=== PATIENT | female | born 1940 | race African-American/Black ===

== ENCOUNTER 2018-06-16 22:21 | Inpatient (IN) | payer MEDICARE, MEDICAID ==
[~2018-06-16] VITALS: Ht 172.7 cm; Wt 86.2 kg
[2018-06-17 00:23] LABS: BASOPHILS % 0.3 % (0.0-2.0); EOSINOPHILS % 0.2 % (0.0-5.0); HEMOGLOBIN. 11.7 g/dL (12.0-16.0); LYMPHOCYTES % 21.1 % (20.0-50.0); MEAN CORPUSCULAR HEMOGLOBIN 30.7 pg (28.0-32.0); MEAN CORPUSCULAR VOLUME 91.7 fL (81.0-99.0); MONOCYTES % 8.9 % (2.0-8.0); NEUTROPHILS % 69.5 % (40.0-76.0); PLATELET 195 x1000/uL (130-400); RED BLOOD CELL COUNT 3.82 mill/uL (4.2-5.4); RED CELL DISTRIBUTION WIDTH 14.6 % (11.6-14.6)
[2018-06-17 00:26] LABS: INR 1.1; PARTIAL THROMBOPLASTIN TIME 29.9 sec (23.4-31.0); PROTHROMBIN TIME 10.7 sec (9.1-11.1)
[2018-06-17 00:28] LABS: CHLORIDE 107 mEq/L (98-107)
[2018-06-17 00:30] LABS: CLARITY URINE CLEAR (CLEAR); COLOR URINE YELLOW (YELLOW); KETONES URINE TRACE (NEGATIVE); LEUKOCYTE ESTERASE URINE NEGATIVE (NEGATIVE); NITRITE URINE NEGATIVE (NEGATIVE); OCCULT BLOOD URINE NEGATIVE (NEGATIVE); PROTEIN URINE NEGATIVE (NEGATIVE); SPECIFIC GRAVITY URINE 1.019 (1.005-1.030)
[2018-06-17] MEDS ORDERED: SODIUM CHLORIDE 0.9% 1,000 ML IV ONE (00:35)
[2018-06-17] MEDS ORDERED: ONDANSETRON HCL 4MG/2ML INJ IV STA (00:35)
[2018-06-17] MEDS ORDERED: MORPHINE SULFATE 4 MG/ML CPJ (NOT FOR IM USE) IV STA (00:35)
[2018-06-17] MEDS ORDERED: ACETAMINOPHEN 325MG TABLET PO PRN (04:30)
[2018-06-17 08:00] VITALS: BP 121/54
[2018-06-17 10:21] VITALS: BP 132/64
[2018-06-17 12:00] VITALS: BP 113/53
[2018-06-17] MEDS ORDERED: IPRATROPIUM/ALBUTEROL 0.5-3(2.5)MG/3ML NEB INH PRN (12:00)
[2018-06-17] MEDS ORDERED: ONDANSETRON HCL 4MG/2ML INJ IV PRN (12:00)
[2018-06-17] MEDS ORDERED: CLONIDINE 0.1MG TABLET PO PRN (12:00)
[2018-06-17] MEDS ORDERED: MVI, ADULT NO.1 10 ML, FOLIC ACID 1 MG in SODIUM CHLORIDE 0.9% 1,000 ML IV NR ×3 (13:00)
[2018-06-17] MEDS ORDERED: THIAMINE HCL 100MG TABLET PO NR (13:00)
[2018-06-17] MEDS: ENOXAPARIN 40MG/0.4ML SYR SUBCUT SCH (13:00)
[2018-06-17] MEDS ORDERED: LORAZEPAM 2MG/ML CPJ IV PRN (14:15)
[2018-06-17 20:00] VITALS: BP 146/67
[2018-06-17] MEDS: ACETAMINOPHEN 325MG TABLET PO PRN (21:48)
[2018-06-18] VITALS: BP 135/54
[2018-06-18] MEDS ORDERED: DORZ10DR9 EACHEYE (03:43)
[2018-06-18] MEDS ORDERED: VALS1TAB80 MT (03:43)
[2018-06-18] MEDS ORDERED: HYDR25TA MT (03:43)
[2018-06-18] MEDS ORDERED: ATOR20TA65 MT (03:43)
[2018-06-18] MEDS ORDERED: ATOR20TA65 PO (03:43)
[2018-06-18] MEDS ORDERED: PREG75CA MT (03:43)
[2018-06-18] MEDS ORDERED: NIFE60TA64 MT (03:43)
[2018-06-18] MEDS ORDERED: MULT-1146 MT (03:43)
[2018-06-18] MEDS ORDERED: ASPI-1158 PO (03:43)
[2018-06-18] MEDS ORDERED: BIMA2.5D4 EACHEYE (03:43)
[2018-06-18 04:00] VITALS: BP 153/69
[2018-06-18 08:00] VITALS: BP 145/64
[2018-06-18 10:50] LABS: BASOPHILS % 0.4 % (0.0-2.0); EOSINOPHILS % 0.1 % (0.0-5.0); HEMATOCRIT. 32.2 % (36.0-48.0); HEMOGLOBIN. 10.7 g/dL (12.0-16.0); LYMPHOCYTES % 14.6 % (20.0-50.0); MEAN CORPUSCULAR HEMOGLOBIN 30.5 pg (28.0-32.0); MEAN CORPUSCULAR VOLUME 91.9 fL (81.0-99.0); MEAN PLATELET VOLUME 8.9 fl (7.4-10.4); MONOCYTES % 7.6 % (2.0-8.0); NEUTROPHILS % 77.3 % (40.0-76.0); PLATELET 198 x1000/uL (130-400); RED BLOOD CELL COUNT 3.51 mill/uL (4.2-5.4); RED CELL DISTRIBUTION WIDTH 14.7 % (11.6-14.6)
[2018-06-18 11:08] LABS: T4 FREE 1.19 ng/dL (0.76-1.46)
[2018-06-18] MEDS: HYDROCODONE/ACETAMINOPHEN 5/325MG TABLET PO PRN (11:37)
[2018-06-18] MEDS: ENOXAPARIN 40MG/0.4ML SYR SUBCUT SCH (11:37)
[2018-06-18 12:00] VITALS: BP 146/83
[2018-06-18 16:00] VITALS: BP 148/66
[2018-06-18] MEDS ORDERED: DOCUSATE SODIUM 100MG CAPSULE PO PRN (16:00)
[2018-06-18] MEDS ORDERED: GUAIFENESIN 200MG/10ML SUGAR FREE UDC PO PRN (16:00)
[2018-06-18] MEDS ORDERED: DIPHENHYDRAMINE 50MG/ML VIAL IV PRN (16:00)
[2018-06-18] MEDS ORDERED: TEMAZEPAM 15MG CAPSULE PO PRN (16:00)
[2018-06-18] MEDS ORDERED: DEXTROSE 50% WATER 50ML SYRINGE IV PRN (16:00)
[2018-06-18] MEDS ORDERED: LACTULOSE 20G/30ML UDC PO NR (16:30)
[2018-06-18] MEDS: BLOOD SUGAR DIAGNOSTIC STRIP TEST SCH ×2 (17:20→21:00)
[2018-06-18] MEDS ORDERED: LEVOFLOXACIN 500MG PREMIX 100 ML IV NR (17:30)
[2018-06-18] MEDS: INSULIN LISPRO 100 UNITS/ML SUBCUT SCH ×2 (17:50→21:00)
[2018-06-18] MEDS: DEXT 5%/0.45% NACL 1000ML 1,000 ML IV SCH (18:23)
[2018-06-18 20:00] VITALS: BP 155/69
[2018-06-18] MEDS: ACETAMINOPHEN 325MG TABLET PO PRN (22:20)
[2018-06-19] VITALS: BP_SYST 125; BP_SYST 138; BP_DIAS 65; BP_DIAS 71
[2018-06-19 04:00] VITALS: BP 148/64
[2018-06-19] MEDS: BLOOD SUGAR DIAGNOSTIC STRIP TEST SCH ×4 (07:20→21:00)
[2018-06-19 07:43] LABS: HEMATOCRIT 31.5 % (36.0-48.0); HEMOGLOBIN 10.5 g/dL (12.0-16.0); MEAN CORPUSCULAR HEMOGLOBIN 30.5 pg (28.0-32.0); MEAN CORPUSCULAR VOLUME 91.4 fL (81.0-99.0); PLATELET 202 x1000/uL (130-400); RED BLOOD CELL COUNT 3.45 mill/uL (4.2-5.4); RED CELL DISTRIBUTION WIDTH 14.7 % (11.6-14.6)
[2018-06-19] MEDS: INSULIN LISPRO 100 UNITS/ML SUBCUT SCH ×4 (07:50→21:00)
[2018-06-19 08:00] VITALS: BP 145/65
[2018-06-19] MEDS: DEXT 5%/0.45% NACL 1000ML 1,000 ML IV SCH (12:55)
[2018-06-19] MEDS: LEVOFLOXACIN 250MG PREMIX 50 ML IV SCH (14:00)
[2018-06-19] MEDS ORDERED: LEVOFLOXACIN 250MG PREMIX 50 ML IV SCH (17:30)
[2018-06-19] MEDS ORDERED: TEMAZEPAM 15MG CAPSULE PO PRN (19:15)
[2018-06-19 20:00] VITALS: BP 150/65
[2018-06-19] MEDS: HYDROCODONE/ACETAMINOPHEN 5/325MG TABLET PO PRN (23:14)
[2018-06-19] MEDS: ACETAMINOPHEN 325MG TABLET PO PRN (23:22)
[2018-06-20 00:01] VITALS: BP 140/66
[2018-06-20 04:00] VITALS: BP 156/77
[2018-06-20] MEDS: INSULIN LISPRO 100 UNITS/ML SUBCUT SCH ×4 (07:45→21:00)
[2018-06-20] MEDS: BLOOD SUGAR DIAGNOSTIC STRIP TEST SCH ×4 (07:45→23:47)
[2018-06-20 08:00] VITALS: BP 146/68
[2018-06-20 10:31] LABS: HEMATOCRIT 31.4 % (36.0-48.0); HEMOGLOBIN 10.2 g/dL (12.0-16.0); MEAN CORPUSCULAR HEMOGLOBIN 29.9 pg (28.0-32.0); MEAN CORPUSCULAR VOLUME 91.6 fL (81.0-99.0); PLATELET 218 x1000/uL (130-400); RED BLOOD CELL COUNT 3.42 mill/uL (4.2-5.4); RED CELL DISTRIBUTION WIDTH 14.6 % (11.6-14.6)
[2018-06-20 11:36] VITALS: BP 127/64
[2018-06-20] MEDS: LEVOFLOXACIN 250MG PREMIX 50 ML IV SCH ×3 (14:00→14:57)
[2018-06-20 16:00] VITALS: BP 174/77
[2018-06-20] MEDS: ACETAMINOPHEN 325MG TABLET PO PRN (18:48)
[2018-06-20 20:00] VITALS: BP 120/56
[2018-06-21] VITALS: BP 130/64
[2018-06-21 04:00] VITALS: BP 136/66
[2018-06-21 06:38] LABS: HEMATOCRIT 28.7 % (36.0-48.0); HEMOGLOBIN 9.4 g/dL (12.0-16.0); MEAN CORPUSCULAR HEMOGLOBIN 30.1 pg (28.0-32.0); MEAN CORPUSCULAR VOLUME 91.4 fL (81.0-99.0); PLATELET 230 x1000/uL (130-400); RED BLOOD CELL COUNT 3.14 mill/uL (4.2-5.4); RED CELL DISTRIBUTION WIDTH 14.6 % (11.6-14.6)
[2018-06-21] MEDS: BLOOD SUGAR DIAGNOSTIC STRIP TEST SCH ×3 (07:36→18:17)
[2018-06-21] MEDS: INSULIN LISPRO 100 UNITS/ML SUBCUT SCH ×3 (07:37→17:50)
[2018-06-21 08:00] VITALS: BP 131/58
[2018-06-21] MEDS: ACETAMINOPHEN 325MG TABLET PO PRN ×2 (08:16→18:43)
[2018-06-21] MEDS ORDERED: LEVOFLOXACIN 250MG TABLET PO SCH (11:00)
[2018-06-21 12:00] VITALS: BP 118/60
[2018-06-21 16:00] VITALS: BP 142/77
[2018-06-21 16:48] VITALS: BP 174/77
[2018-06-21] MEDS ORDERED: PANTOPRAZOLE 40MG DR TABLET PO SCH (17:45)
[2018-06-21] MEDS ORDERED: SIMETHICONE 80MG TABLET CHEW PO PRN (17:45)
== END 2018-06-21 20:03 | DRG 551 ==
LOC: ER 22:21 → 6EST 06-17 04:29 → EDBEDREQTM 06-17 04:40 → EDBEDREQ 06-17 04:40 → ENRESERV 06-17 07:14
PROVIDERS: ADMIT Internal Medicine; ATTEND Internal Medicine
DX: M48.061 Spinal stenosis, lumbar region without neurogenic claudication (principal); I50.33 Acute on chronic diastolic (congestive) heart failure; I13.0 Hypertensive heart and chronic kidney disease with heart failure and stage 1 through stage 4 chronic kidney disease, or unspecified chronic kidney disease; N17.9 Acute kidney failure, unspecified; G82.20 Paraplegia, unspecified; N39.0 Urinary tract infection, site not specified; N18.9 Chronic kidney disease, unspecified; E11.22 Type 2 diabetes mellitus with diabetic chronic kidney disease; E78.5 Hyperlipidemia, unspecified; E83.52 Hypercalcemia; K44.9 Diaphragmatic hernia without obstruction or gangrene; M43.16 Spondylolisthesis, lumbar region; K80.20 Calculus of gallbladder without cholecystitis without obstruction; M19.90 Unspecified osteoarthritis, unspecified site; Z53.29 Procedure and treatment not carried out because of patient's decision for other reasons; M47.816 Spondylosis without myelopathy or radiculopathy, lumbar region; Z90.710 Acquired absence of both cervix and uterus; Z88.0 Allergy status to penicillin; Z79.899 Other long term (current) drug therapy; Z79.82 Long term (current) use of aspirin
CPT/HCPCS: 36415; 71045; 71250; 72131; 72148; 76770; 80048; 80061; 80076; 82378; 82962; 83036; 84439; 84443; 84484; 85027; 93005; 93306; 93970; 96374; 97116; 97162; 97166; 97530; 99285; J1650; J1815; J1956; J2060; J2270; J2405; J3490; J7030

== ENCOUNTER 2018-06-21 20:06 | Inpatient (IN) | payer MEDICARE, MEDICAID ==
[~2018-06-21] VITALS: Ht 172.7 cm; Wt 86.2 kg
[2018-06-21 20:00] VITALS: BP 149/66
[~2018-06-21 20:06] MED LIST: ASPI-1158 PO; ATOR20TA65 MT; ATOR20TA65 PO; BIMA2.5D4 EACHEYE; DORZ10DR9 EACHEYE; HYDR25TA MT; MULT-1146 MT; NIFE60TA64 MT; PREG75CA MT; VALS1TAB80 MT
[2018-06-21] MEDS ORDERED: TEMAZEPAM 15MG CAPSULE PO PRN (20:45)
[2018-06-21] MEDS ORDERED: DEXTROSE 50% WATER 50ML SYRINGE IV PRN (20:45)
[2018-06-21] MEDS ORDERED: DOCUSATE SODIUM 100MG CAPSULE PO PRN (20:45)
[2018-06-21] MEDS ORDERED: ACETAMINOPHEN 650MG/20.3ML UDC PO PRN (20:45)
[2018-06-21] MEDS ORDERED: DIPHENHYDRAMINE 50MG/ML VIAL IM PRN (20:45)
[2018-06-21] MEDS ORDERED: GUAIFENESIN 200MG/10ML SUGAR FREE UDC PO PRN (20:45)
[2018-06-21] MEDS ORDERED: ONDANSETRON HCL 4MG/2ML INJ IV PRN (20:45)
[2018-06-21] MEDS ORDERED: IPRATROPIUM/ALBUTEROL 0.5-3(2.5)MG/3ML NEB HHN PRN (20:45)
[2018-06-21] MEDS ORDERED: CLONIDINE 0.1MG TABLET PO PRN (20:45)
[2018-06-21] MEDS ORDERED: SIMETHICONE 80MG TABLET CHEW PO PRN (20:45)
[2018-06-21] MEDS ORDERED: HYDROCODONE/ACETAMINOPHEN 5/325MG TABLET PO PRN (20:45)
[2018-06-21] MEDS: INSULIN LISPRO 100 UNITS/ML SUBCUT SCH (21:00)
[2018-06-21] MEDS: BLOOD SUGAR DIAGNOSTIC STRIP TEST SCH (21:52)
[2018-06-21] MEDS ORDERED: BISACODYL 5MG TABLET PO PRN (22:15)
[2018-06-22] MEDS: ACETAMINOPHEN 325MG TABLET PO PRN ×4 (01:13→20:58)
[2018-06-22] MEDS ORDERED: DIPHENHYDRAMINE 50MG/ML VIAL IV PRN (02:45)
[2018-06-22] MEDS: BLOOD SUGAR DIAGNOSTIC STRIP TEST SCH ×4 (06:15→20:58)
[2018-06-22] MEDS: INSULIN LISPRO 100 UNITS/ML SUBCUT SCH ×4 (06:16→20:58)
[2018-06-22] MEDS: PANTOPRAZOLE 40MG DR TABLET PO SCH (07:00)
[2018-06-22 07:35] LABS: BASOPHILS % 0.3 % (0.0-2.0); EOSINOPHILS % 0.8 % (0.0-5.0); HEMATOCRIT. 29.3 % (36.0-48.0); HEMOGLOBIN. 9.6 g/dL (12.0-16.0); LYMPHOCYTES % 14.4 % (20.0-50.0); MEAN CORPUSCULAR HEMOGLOBIN 29.8 pg (28.0-32.0); MEAN CORPUSCULAR VOLUME 91.4 fL (81.0-99.0); MEAN PLATELET VOLUME 8.4 fl (7.4-10.4); MONOCYTES % 9.7 % (2.0-8.0); NEUTROPHILS % 74.8 % (40.0-76.0); PLATELET 259 x1000/uL (130-400); RED BLOOD CELL COUNT 3.21 mill/uL (4.2-5.4); RED CELL DISTRIBUTION WIDTH 14.6 % (11.6-14.6)
[2018-06-22 08:00] VITALS: BP 159/70
[2018-06-22] MEDS: LEVOFLOXACIN 250MG TABLET PO SCH (11:56)
[2018-06-22 20:00] VITALS: BP 147/66
[2018-06-23] MEDS: PANTOPRAZOLE 40MG DR TABLET PO SCH (06:22)
[2018-06-23] MEDS: BLOOD SUGAR DIAGNOSTIC STRIP TEST SCH ×4 (06:22→20:39)
[2018-06-23] MEDS: INSULIN LISPRO 100 UNITS/ML SUBCUT SCH ×3 (07:15→20:40)
[2018-06-23 08:00] VITALS: BP 150/69
[2018-06-23] MEDS: ACETAMINOPHEN 325MG TABLET PO PRN ×2 (10:08→22:26)
[2018-06-23] MEDS: LEVOFLOXACIN 250MG TABLET PO SCH (10:08)
[2018-06-23] MEDS: DOCUSATE SODIUM 100MG CAPSULE PO SCH ×2 (10:09→17:13)
[2018-06-23] MEDS ORDERED: ENOXAPARIN 40MG/0.4ML SYR SUBCUT SCH (16:00)
[2018-06-23] MEDS ORDERED: LIDOCAINE 5% PATCH TOP SCH (17:00)
[2018-06-23 18:06] LABS: CHLORIDE 109 mEq/L (98-107)
[2018-06-23 20:00] VITALS: BP 161/70
[2018-06-23 21:20] VITALS: BP 151/77
[2018-06-23 22:46] VITALS: BP 154/75
[2018-06-23] MEDS ORDERED: ENOXAPARIN 60MG/0.6ML SYR SUBCUT NR (22:57)
[2018-06-24] MEDS ORDERED: ENOXAPARIN 100MG/ML SYR SUBCUT SCH (09:00)
[2018-06-24] MEDS ORDERED: FAMOTIDINE 20MG TABLET PO SCH (09:00)
== END 2018-06-23 23:35 | disposition short-term general hospital (02) | DRG 552 ==
PROVIDERS: ADMIT Psychiatry & Neurology Neurology; ATTEND Internal Medicine
DX: M48.061 Spinal stenosis, lumbar region without neurogenic claudication (principal); I13.0 Hypertensive heart and chronic kidney disease with heart failure and stage 1 through stage 4 chronic kidney disease, or unspecified chronic kidney disease; I50.30 Unspecified diastolic (congestive) heart failure; E11.22 Type 2 diabetes mellitus with diabetic chronic kidney disease; E78.5 Hyperlipidemia, unspecified; G89.29 Other chronic pain; K80.20 Calculus of gallbladder without cholecystitis without obstruction; M43.16 Spondylolisthesis, lumbar region; M19.90 Unspecified osteoarthritis, unspecified site; M54.32 Sciatica, left side; R07.89 Other chest pain; M54.31 Sciatica, right side; K44.9 Diaphragmatic hernia without obstruction or gangrene; N18.9 Chronic kidney disease, unspecified; R26.9 Unspecified abnormalities of gait and mobility; K59.00 Constipation, unspecified; E11.42 Type 2 diabetes mellitus with diabetic polyneuropathy; Z88.0 Allergy status to penicillin; Z79.899 Other long term (current) drug therapy
CPT/HCPCS: 36415; 78582; 80048; 82962; 84484; 85379; 97116; 97162; 97166; 97530; 97535; A9558; J1650

== ENCOUNTER 2018-06-23 23:38 | Inpatient (IN) | payer MEDICARE, MEDICAID ==
[~2018-06-23] VITALS: Ht 170.2 cm; Wt 82.4 kg
[2018-06-23 23:38] VITALS: BP 172/78
[2018-06-24] MEDS ORDERED: BISACODYL 5MG TABLET PO PRN (01:30)
[2018-06-24] MEDS ORDERED: DEXTROSE 50% WATER 50ML SYRINGE IV PRN (01:30)
[2018-06-24] MEDS ORDERED: SIMETHICONE 80MG TABLET CHEW PO PRN (01:30)
[2018-06-24] MEDS ORDERED: ONDANSETRON HCL 4MG/2ML INJ IV PRN (01:30)
[2018-06-24] MEDS ORDERED: TEMAZEPAM 15MG CAPSULE PO PRN (01:30)
[2018-06-24] MEDS ORDERED: HYDROCODONE/ACETAMINOPHEN 5/325MG TABLET PO PRN (01:30)
[2018-06-24] MEDS ORDERED: DIPHENHYDRAMINE 50MG/ML VIAL IV PRN (01:30)
[2018-06-24] MEDS ORDERED: GUAIFENESIN 200MG/10ML SUGAR FREE UDC PO PRN (01:30)
[2018-06-24] MEDS ORDERED: DOCUSATE SODIUM 100MG CAPSULE PO PRN (01:30)
[2018-06-24] MEDS ORDERED: IPRATROPIUM/ALBUTEROL 0.5-3(2.5)MG/3ML NEB HHN PRN (01:30)
[2018-06-24] MEDS: CLONIDINE 0.1MG TABLET PO PRN ×2 (02:21→13:09)
[2018-06-24 04:00] VITALS: BP 150/69
[2018-06-24] MEDS: BLOOD SUGAR DIAGNOSTIC STRIP TEST SCH ×4 (06:27→21:13)
[2018-06-24 07:21] LABS: CHLORIDE 110 mEq/L (98-107)
[2018-06-24 07:33] LABS: CREATINE KINASE 124 IU/L (26-192); HDL CHOLESTEROL 31 mg/dL (40-59); LDL CHOLESTEROL 63 mg/dL (5-100)
[2018-06-24 07:36] LABS: CREATINE KINASE MB FRACTION 1.5 ng/mL (0.5-3.6)
[2018-06-24 07:50] LABS: HEMATOCRIT 27.7 % (36.0-48.0); HEMOGLOBIN 9.2 g/dL (12.0-16.0); MEAN CORPUSCULAR HEMOGLOBIN 30.5 pg (28.0-32.0); MEAN CORPUSCULAR VOLUME 92.1 fL (81.0-99.0); PLATELET 310 x1000/uL (130-400); RED BLOOD CELL COUNT 3.01 mill/uL (4.2-5.4); RED CELL DISTRIBUTION WIDTH 14.6 % (11.6-14.6)
[2018-06-24] MEDS: INSULIN LISPRO 100 UNITS/ML SUBCUT SCH ×4 (07:50→21:00)
[2018-06-24 08:00] VITALS: BP 142/62
[2018-06-24] MEDS: DOCUSATE SODIUM 100MG CAPSULE PO SCH ×3 (08:25→18:37)
[2018-06-24] MEDS: FAMOTIDINE 20MG TABLET PO SCH (08:26)
[2018-06-24] MEDS: LEVOFLOXACIN 250MG TABLET PO SCH (11:45)
[2018-06-24] MEDS: ENOXAPARIN 80MG/0.8ML SYR SUBCUT SCH ×2 (11:46→23:12)
[2018-06-24 12:00] VITALS: BP 167/71
[2018-06-24 15:58] LABS: BG BASE EXCESS 0.5 mmol/L (-2.0-2.0); BG CARBOXYHEMOGLOBIN 0.4 % (0.5-1.5); BG DEOXYHEMOGLOBIN 4.7 % (0.0-5.0); BG FRACTION INSPIRED OXYGEN 21; BG HCO3 ACT 24.2 mmol/L (22.0-26.0); BG METHEMOGLOBIN 0.3 % (0.0-1.5); BG OXYGEN SATURATION 95.3 % (92.0-98.5); BG OXYHEMOGLOBIN 94.6 % (94.0-97.0); BG PCO2 35.4 mmHg (35.0-45.0); BG PH 7.453 (7.350-7.450); BG PO2 78.3 mmHg (75.0-100.0); BG SAMPLE SITE RIGHT BRACHIAL; BG VENT MODE ROOM AIR
[2018-06-24 16:00] VITALS: BP 140/65
[2018-06-24 17:44] LABS: CREATINE KINASE 136 IU/L (26-192)
[2018-06-24 17:45] LABS: CREATINE KINASE MB FRACTION 1.6 ng/mL (0.5-3.6)
[2018-06-24] MEDS: ACETAMINOPHEN 325MG TABLET PO PRN (18:37)
[2018-06-24] MEDS: LIDOCAINE 5% PATCH TOP SCH (18:38)
[2018-06-24 20:00] VITALS: BP 147/69
[2018-06-24 22:47] LABS: CREATINE KINASE 132 IU/L (26-192)
[2018-06-24 22:48] LABS: CREATINE KINASE MB FRACTION 1.4 ng/mL (0.5-3.6)
[2018-06-25] VITALS: BP 150/70
[2018-06-25 04:00] VITALS: BP 145/54
[2018-06-25] MEDS: BLOOD SUGAR DIAGNOSTIC STRIP TEST SCH ×4 (06:21→20:58)
[2018-06-25] MEDS: ACETAMINOPHEN 325MG TABLET PO PRN ×2 (06:25→18:33)
[2018-06-25] MEDS: INSULIN LISPRO 100 UNITS/ML SUBCUT SCH ×4 (07:41→20:58)
[2018-06-25 08:00] VITALS: BP 158/64
[2018-06-25 08:22] LABS: CLARITY URINE CLEAR (CLEAR); COLOR URINE YELLOW (YELLOW); KETONES URINE NEGATIVE (NEGATIVE); LEUKOCYTE ESTERASE URINE 2+ (NEGATIVE); NITRITE URINE POSITIVE (NEGATIVE); OCCULT BLOOD URINE 1+ (NEGATIVE); PROTEIN URINE TRACE (NEGATIVE); SPECIFIC GRAVITY URINE 1.022 (1.005-1.030)
[2018-06-25 08:37] LABS: HEMATOCRIT 30.1 % (36.0-48.0); HEMOGLOBIN 9.8 g/dL (12.0-16.0); MEAN CORPUSCULAR HEMOGLOBIN 29.7 pg (28.0-32.0); MEAN CORPUSCULAR VOLUME 91.2 fL (81.0-99.0); PLATELET 366 x1000/uL (130-400); RED CELL DISTRIBUTION WIDTH 14.8 % (11.6-14.6)
[2018-06-25 08:49] LABS: CHLORIDE 108 mEq/L (98-107)
[2018-06-25] MEDS: FAMOTIDINE 20MG TABLET PO SCH (09:25)
[2018-06-25] MEDS: DOCUSATE SODIUM 100MG CAPSULE PO SCH ×2 (09:25→18:33)
[2018-06-25] MEDS: LIDOCAINE 5% PATCH TOP SCH (09:26)
[2018-06-25] MEDS: LEVOFLOXACIN 250MG TABLET PO SCH (11:52)
[2018-06-25] MEDS: ENOXAPARIN 80MG/0.8ML SYR SUBCUT SCH ×2 (11:53→22:39)
[2018-06-25 12:00] VITALS: BP 174/64
[2018-06-25 16:22] VITALS: BP 163/68
[2018-06-25 20:55] VITALS: BP 173/81
[2018-06-25] MEDS: AMLODIPINE 5MG TABLET PO SCH (20:57)
[2018-06-26 00:55] VITALS: BP 180/75
[2018-06-26] MEDS: CLONIDINE 0.1MG TABLET PO PRN ×2 (01:06→11:38)
[2018-06-26 01:07] VITALS: BP 170/67
[2018-06-26 04:00] VITALS: BP 156/74
[2018-06-26] MEDS: BLOOD SUGAR DIAGNOSTIC STRIP TEST SCH ×2 (06:40→11:39)
[2018-06-26] MEDS: INSULIN LISPRO 100 UNITS/ML SUBCUT SCH ×2 (07:50→12:50)
[2018-06-26 08:00] VITALS: BP 163/72
[2018-06-26] MEDS: DOCUSATE SODIUM 100MG CAPSULE PO SCH (09:13)
[2018-06-26] MEDS: FAMOTIDINE 20MG TABLET PO SCH (09:13)
[2018-06-26] MEDS: AMLODIPINE 5MG TABLET PO SCH (09:13)
[2018-06-26] MEDS: ACETAMINOPHEN 325MG TABLET PO PRN (09:14)
[2018-06-26] MEDS: LIDOCAINE 5% PATCH TOP SCH (09:14)
[2018-06-26 11:32] VITALS: BP 173/69
[2018-06-26] MEDS: LEVOFLOXACIN 250MG TABLET PO SCH (11:38)
[2018-06-26] MEDS: ENOXAPARIN 80MG/0.8ML SYR SUBCUT SCH (11:39)
[2018-06-26 16:48] VITALS: BP 158/72
[2018-06-27] MEDS ORDERED: LEVOFLOXACIN 500MG TABLET PO SCH (11:00)
== END 2018-06-26 17:30 | disposition home health service (06) | DRG 682 ==
LOC: 6WST 23:38
PROVIDERS: ADMIT Internal Medicine; ATTEND Internal Medicine
DX: N17.9 Acute kidney failure, unspecified (principal); I26.99 Other pulmonary embolism without acute cor pulmonale; I50.30 Unspecified diastolic (congestive) heart failure; I13.0 Hypertensive heart and chronic kidney disease with heart failure and stage 1 through stage 4 chronic kidney disease, or unspecified chronic kidney disease; N39.0 Urinary tract infection, site not specified; M48.061 Spinal stenosis, lumbar region without neurogenic claudication; E11.22 Type 2 diabetes mellitus with diabetic chronic kidney disease; E78.5 Hyperlipidemia, unspecified; N18.9 Chronic kidney disease, unspecified; M54.32 Sciatica, left side; M54.31 Sciatica, right side; K80.20 Calculus of gallbladder without cholecystitis without obstruction; R91.8 Other nonspecific abnormal finding of lung field; K44.9 Diaphragmatic hernia without obstruction or gangrene; Z88.0 Allergy status to penicillin; R26.9 Unspecified abnormalities of gait and mobility; G89.29 Other chronic pain; B96.89 Other specified bacterial agents as the cause of diseases classified elsewhere; Z79.4 Long term (current) use of insulin
CPT/HCPCS: 36415; 36600; 80048; 80061; 82375; 82550; 82553; 82805; 82962; 84484; 85027; 87077; 87186; 93005; 93970; 97116; 97162; 97166; 97530; 97535; J1650; J7040